=== PATIENT | male | born 1985 | race Caucasian/White ===

== ENCOUNTER 2020-05-12 09:20 | Emergency (ER) | payer BC ==
[~2020-05-12] VITALS: Ht 177.8 cm; Wt 64.9 kg
[~2020-05-12 09:20] MED LIST: HYDROCODONE-AP1 EAC6 PO; MEDROLDOSEPACK PO
[2020-05-12] MEDS ORDERED: XANAX1 MG PO (09:35)
[2020-05-12] MEDS ORDERED: NORCO 5-325 TA1 EAC1 PO (10:15)
[2020-05-12] MEDS ORDERED: PERCOCET 5-3251 EACH PO (10:19)
[2020-05-12 10:39] VITALS: BP 111/75
== END 2020-05-12 10:39 | disposition home or self-care (01) ==
LOC: M.ERS 09:20
DX: S62.306A Unspecified fracture of fifth metacarpal bone, right hand, initial encounter for closed fracture (principal); F41.9 Anxiety disorder, unspecified; W22.8XXA Striking against or struck by other objects, initial encounter; Y93.89 Activity, other specified; Y92.89 Other specified places as the place of occurrence of the external cause; Y99.8 Other external cause status

== ENCOUNTER 2020-07-03 14:13 | Emergency (ER) | payer BC ==
[~2020-07-03] VITALS: Ht 177.8 cm; Wt 63.5 kg
[~2020-07-03 14:13] MED LIST changes: +NORCO 5-325 TA1 EAC1 PO; +PERCOCET 5-3251 EACH PO; +XANAX1 MG PO
[2020-07-03 15:03] LABS: ABSOLUTE BASOPHILS 0.1 thou/uL (0.0-0.2); ABSOLUTE LYMPHOCYTES 1.6 thou/uL (0.8-5.3); ABSOLUTE MONOCYTES 0.4 thou/uL (0.0-1.2); ABSOLUTE NEUTROPHILS 2.7 thou/uL (1.6-8.1); BASOPHILS 1.2 %; HEMATOCRIT 42.3 % (42.0-52.0); HEMOGLOBIN 14.9 gm/dL (14.0-18.0); LYMPHOCYTES 32.3 %; MCH 31.3 pg (26.0-34.0); MCHC 35.4 g/dL (28.0-37.0); MCV 88.5 fL (80.0-100.0); MONOCYTES 8.8 %; MPV 6.9 fl. (7.2-11.1); NUCLEATED RBCS 0 /100WBC; PLATELET COUNT* 223 thou/uL (150-400); POLYS 56.7 %; RBC 4.77 mil/uL (4.50-6.00); RDW-CV 13.2 % (10.5-14.5); WBC 4.8 thou/uL (4.0-11.0)
[2020-07-03 15:09] LABS: CALCIUM 8.4 mg/dL (8.5-10.1); CREATININE 0.8 mg/dL (0.6-1.3); POTASSIUM 3.4 mmol/L (3.5-5.1)
[2020-07-03 15:13] LABS: ALBUMIN 4.1 g/dL (3.4-5.0); TOTAL BILIRUBIN 0.7 mg/dL (<0.1-1.0); TOTAL PROTEIN 6.8 g/dL (6.4-8.2)
[2020-07-03] MEDS ORDERED: TRAMADOL 50 MG50 MG PO (15:54)
[2020-07-03] MEDS ORDERED: FLEXERIL PO (15:54)
[2020-07-03] MEDS ORDERED: LIDODERM1 EACH TRANSDERM (15:54)
[2020-07-03 16:13] VITALS: BP 111/71
== END 2020-07-03 16:13 | disposition home or self-care (01) ==
LOC: M.ERS 14:13
PROVIDERS: Physician Assistant
DX: M54.6 Pain in thoracic spine (principal); F41.9 Anxiety disorder, unspecified

== ENCOUNTER 2020-08-22 09:00 | Emergency (ER) | payer BC ==
[~2020-08-22] VITALS: Ht 177.8 cm; Wt 64.9 kg
[~2020-08-22 09:00] MED LIST changes: +FLEXERIL PO; +LIDODERM1 EACH TRANSDERM; +TRAMADOL 50 MG50 MG PO
[2020-08-22 09:08] VITALS: BP 122/73
[2020-08-22] MEDS ORDERED: FLEXERIL PO (09:38)
[2020-08-22] MEDS ORDERED: ULTRAM 50MG TAB50 MG PO (09:38)
--- NOTE | 2020-08-22 15:51 | EKG ---
[place] [address] ELECTROCARDIOGRAM REPORT Name: SHAY LIRIANO Room: [facility]#: [id number] Admission: 08/22/20 Attend Phys: Discharge: 08/22/20 Date of : 89 Date of Service: 08/22/20907 Report #: [id number] THIS REPORT FOR: //name// [facility] ED Test Date: 2020-08-22 Test Time: 09:08:14 Pat Name: SHAY LIRIANO Department: Room: Gender: [employer] Accountant: : 1985 Requested By: Ubaldo Healy Order Number: [id number] MD: Ruel Dent Measurements Intervals [place] Rate: 80 P: 74 DE: 123 QRS: 79 QRSD: 106 T: 71 QT: 376 QTc: 434 Interpretive Statements Sinus rhythm artifact noted RSR' in V1 or V2, right VCD or RVH ST elev, probable normal early repol pattern Electronically Signed On 08-22-2020 15:51:29 CDT by Ruel Dent [email or web address] <ELECTRONICALLY SIGNED> By: Ruel Dent MD, [facility] 08/22/20 1551 [id number] Ruel Dent MD, [facility] /EPI
== END 2020-08-22 09:48 | disposition home or self-care (01) ==
LOC: M.ERS 09:00
DX: R07.89 Other chest pain (principal); F17.210 Nicotine dependence, cigarettes, uncomplicated